=== PATIENT | female | born 1950 | race Caucasian/White ===

== ENCOUNTER 2023-08-25 08:43 | Observation (INO) ==
[2023-08-25] MEDS ORDERED: SODIUM CHLORIDE 0.9% 1,000 ML IV STA (09:03)
--- NOTE | 2023-08-25 09:08 | Emergency Department Note ---
Impression & Plan Elevated troponin ADMIT ED Provider Note HPI: History obtained from patient and at the bedside. The patient is a 72-year-old female with history of breast cancer, currently on chemotherapy, presents emergency department with a chief complaint of an episode of vomiting and amnesia since last night. Patient's states that the patient felt nauseous last night at around 8:30 PM and had an episode of vomiting. Patient was not having any abdominal pain. Shortly after this episode the patient seemed to have some confusion mostly related to amnesia, patient was asking the frequently the same questions that he had already answered. This morning the patient did not remember the events of last night including her episode of vomiting. Therefore they came to the emergency department for the patient to be assessed. On arrival here to the ED the patient states that her symptoms are completely resolved, patient is alert and oriented x 3 on arrival, denies any abdominal pain, denies any nausea or vomiting. Patient does not have any focal deficits on arrival. ROS: - Per HPI Differential Diagnosis: Acute ischemic stroke, intracranial hemorrhage, viral infection, meningitis, COVID-19 infection, influenza A infection, urinary tract infection, pneumonia, small bowel obstruction, viral gastroenteritis, amongst other potential pathologies. *Outpatient medications and allergy history reviewed. PE: General: Alert HEENT: Normocephalic, trachea midline Eyes: Extraocular eye movement is intact, no scleral erythema Pulmonary: Clear to auscultation bilaterally, no wheezing Cardio: Regular rate and rhythm GI: Abdomen is soft to palpation : No suprapubic tenderness MSK: No evidence of trauma or malformation of the extremities, no edema Skin: No evidence of rash Neuro: Alert, no focal deficits, symmetrical facial movements are appreciated, equal bilateral drill doctor strength, patient ambulates all extremities spontaneously without issue Psychiatric: Cooperative INDEPENDENT INTERPRETATIONS: monitoring analyst: (As interpreted by myself): - An order was placed for continuous cardiac monitoring - Patient was noted to be in sinus rhythm with a rate of 90 EKG: (As interpreted by myself): Rate: 115 Rhythm: Sinus tachycardia Intervals: Within normal limits ST changes: No ST elevation Time: 0911 Chest x-ray: (As interpreted by myself): No acute disease Interventions provided in ED: -IV fluid bolus Medical Decision Making: Shortly after the patient arrived IV was established and lab work obtained, patient was placed on teletypesetter monitor. Lab work shows no leukocytosis, hemoglobin is normal, platelet count is normal, CMP shows a mild hypokalemia at 3.3, no evidence of acute kidney injury, high-sensitivity troponin is noted to be elevated at 45.4. EKG per my interpretation does not show any evidence of any acute ischemic changes, does reveal sinus tachycardia with a rate of 115. Urinalysis does not show any evidence of infection, there are trace ketones and trace blood. Viral panel testing was obtained and is completely negative. CT imaging of the head without contrast was obtained and there is no evidence of any acute intracranial process. Patient's abdomen is soft and nontender on my exam, I do not feel that CT imaging of the abdomen pelvis is indicated at this time. On my reassessment the patient continues to appear well, troponin on repeat is increasing to 62.4. Patient continues to deny any chest pain. Unclear source for the patient's troponin elevation and transient episode of amnesia, given the finding of troponin that is continuing to uptrend she will be admitted to the hospitalist service following my discussion with the on-call hospitalist, Dr. Mccoy. Patient and her at the bedside are in agreement to the above plan and the patient was placed for admission in stable condition. Consultants/Discussions held with other healthcare providers: -Hospitalist, Dr. Mccoy Disposition discussion held by myself with: -Patient and at bedside Diagnosis: 1. Elevated troponin, acute 2. Transient episode of amnesia 3. Transient episode of vomiting Disposition: Admission Advised outpatient follow up that was discussed with the patient: -Return to the ED immediately with any new or worsening symptoms -Follow up with a PCP in 2-3 Days Juve Titus DO Emergency Medicine Past Med/Surg History Medical History TGA (transient global amnesia) Hypertension Eczema Anxiety Breast cancer, right Biopsy on 05/11/22 Surgical History History of partial mastectomy of right breast with axillary SLN biopsy on 05/28/[address] Saldana Family History Mother , 47yo Leukemia Father , 73yo Stroke Hypertension Brother Atrial fibrillation Myocardial infarction Hypertension Daughter No problems noted. 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 How many Children do You have: 1 Feels Safe at Home: Yes Diet: regular caffeine: No during the past year weight has: remained stable Allergies Allergies Allergy/AdvReac Type Severity Reaction Status Date / Time telmisartan [From Micardis] Allergy Unknown Verified 03/22/23 14:42 Home Meds Home Medications Medication Instructions Recorded Confirmed fluoxetine 10 mg capsule (Prozac) 10 mg PO DAILY 06/23/22 08/25/23 losartan 50 mg tablet 50 mg PO DAILY 06/23/22 08/25/23 hydrochlorothiazide 12.5 mg tablet 12.5 mg PO DAILY 10/19/22 08/25/23 calcium carbonate 600 mg-vitamin 0 cap PO DAILY 03/22/23 08/25/23 D3 5 mcg (200 unit) capsule letrozole 2.5 mg tablet 2.5 mg PO DAILY 03/22/23 08/25/23 Results & Data (ED) Vital Signs Vital Signs - 24 hr 08/25/23 08:43 08/25/23 09:21 08/25/23 09:23 Temperature 36.6 C Temperature Source Temporal Artery Scan Pulse Rate 124 H 106 H 105 H Pulse Rate from SpO2 Sensor 106 H Respiratory Rate 18 13 Blood Pressure 206/99 H 154/115 H Blood Pressure Mean 134 128 Pulse Oximetry 96 96 Oxygen Delivery Method Room Air Sepsis Recent Fever Within 48 Hours No Sepsis New/Unexplained Change in Mental Status N/A Sepsis Action Taken by Nursing No Action Required 08/25/23 09:33 08/25/23 10:00 08/25/23 10:30 Temperature Temperature Source Pulse Rate 99 H 98 H Pulse Rate from SpO2 Sensor 98 H 99 H Respiratory Rate 23 15 Blood Pressure 149/98 H 172/99 H Blood Pressure Mean 115 123 Pulse Oximetry 97 97 98 Oxygen Delivery Method Room Air Room Air Room Air Sepsis Recent Fever Within 48 Hours Sepsis New/Unexplained Change in Mental Status Sepsis Action Taken by Nursing 08/25/23 11:00 08/25/23 11:00 08/25/23 11:10 Temperature Temperature Source Pulse Rate 103 H 92 H Pulse Rate from SpO2 Sensor 103 H 92 H Respiratory Rate 16 15 Blood Pressure 177/105 H Blood Pressure Mean 140 Pulse Oximetry 97 97 Oxygen Delivery Method Sepsis Recent Fever Within 48 Hours Sepsis New/Unexplained Change in Mental Status Sepsis Action Taken by Nursing 08/25/23 11:20 08/25/23 11:32 08/25/23 11:33 Temperature Temperature Source Pulse Rate 87 97 H 94 H Pulse Rate from SpO2 Sensor 89 Respiratory Rate 18 14 22 Blood Pressure Blood Pressure Mean Pulse Oximetry 99 Oxygen Delivery Method Sepsis Recent Fever Within 48 Hours Sepsis New/Unexplained Change in Mental Status Sepsis Action Taken by Nursing 08/25/23 11:40 08/25/23 11:50 08/25/23 12:00 Temperature Temperature Source Pulse Rate 90 88 Pulse Rate from SpO2 Sensor 89 90 Respiratory Rate 17 17 Blood Pressure 202/126 H Blood Pressure Mean 140 Pulse Oximetry 99 99 Oxygen Delivery Method Sepsis Recent Fever Within 48 Hours Sepsis New/Unexplained Change in Mental Status Sepsis Action Taken by Nursing 08/25/23 12:00 08/25/23 12:10 08/25/23 12:20 Temperature Temperature Source Pulse Rate 97 H 91 H 98 H Pulse Rate from SpO2 Sensor 97 H 92 H 97 H Respiratory Rate 22 13 19 Blood Pressure Blood Pressure Mean Pulse Oximetry 98 98 96 Oxygen Delivery Method Sepsis Recent Fever Within 48 Hours Sepsis New/Unexplained Change in Mental Status Sepsis Action Taken by Nursing 08/25/23 13:24 Temperature Temperature Source Pulse Rate 91 H Pulse Rate from SpO2 Sensor Respiratory Rate Blood Pressure Blood Pressure Mean Pulse Oximetry Oxygen Delivery Method Sepsis Recent Fever Within 48 Hours Sepsis New/Unexplained Change in Mental Status Sepsis Action Taken by Nursing Laboratory Data 08/25/23 09:22 08/25/23 09:22 Lab Results 08/25/23 08/25/23 08/25/23 Range/Units 09:22 09:46 11:10 WBC 6.80 (4.8-10.8) K/ul RBC 5.17 (4.20-5.40) M/uL Hgb 15.1 (12.0-16.0) g/dl Hct 44.5 (37.0-47.0) % MCV 86.1 (80.0-100.0) fL MCH 29.2 (25.0-34.0) pg MCHC 33.9 (32.0-36.0) g/dL RDW Std Deviation 40.9 (36.4-46.3) fL RDW Coeff of [place] 13.1 (11.5-14.5) % Plt Count 284 (130-400) K/uL MPV 9.4 (9.4-12.4) fL Immature Gran % (Auto) 0.1 % Neut % (Auto) 82.5 % Lymph % (Auto) 10.7 % [place] % (Auto) 6.6 % Eos % (Auto) 0.0 % Baso % (Auto) 0.1 % Neut # (Auto) 5.60 (1.40-6.50) K/uL Lymph # (Auto) 0.73 L (1.20-3.40) K/uL [place] # (Auto) 0.45 (0.11-0.59) K/uL Eos # (Auto) 0.00 (0.00-0.50) K/uL Baso # (Auto) 0.01 (0.00-0.20) K/uL Immature Gran # (Auto) 0.01 (0.01-0.20) K/uL PT 10.9 (9.0-12.0) Seconds INR 1.0 (0.9-1.1) Sodium 140 (136-145) mmol/L Potassium 3.3 L (3.5-5.1) mmol/L Chloride 105 (98-107) mmol/L Carbon Dioxide 25 (21-32) mmol/L Anion Gap 10 (3-11) BUN 23 (6-23) mg/dl Creatinine 0.88 (0.6-1.2) mg/dl Est Cr Clr Drug Dosing 56.4 ml/min Est GFR ( Amer) 76.1 ml/min Est GFR (Non-Af Amer) 65.6 ml/min BUN/Creatinine Ratio 26.1 H (10-20) Glucose 148 H (70-99(Fasting)) mg/dl Calcium 9.4 (8.6-10.3) mg/dl Total Bilirubin 0.7 (0.2-1.0) mg/dl AST 18 (13-39) U/L ALT 19 (7-52) U/L Alkaline Phosphatase 93 (34-104) U/L Troponin I High Sens 45.4 H 62.4 H* D (0-14) pg/ml Total Protein 7.7 (6.0-8.3) gm/dl Albumin 4.3 (3.4-5.0) gm/dl Globulin 3.4 (2.5-4.0) gm/dl Albumin/Globulin Ratio 1.3 (0.9-2) Lipase 13 (11-82) U/L Urine Color Urine Appearance (Clear) Urine pH (4.5-7.5) Ur Specific [place] (1.000-1.030) Urine Protein (Negative) Urine Glucose (UA) (Negative) Urine Ketones (Negative) Urine Blood (Negative) Urine Nitrite (Negative) Urine Bilirubin (Negative) Urine Urobilinogen (Negative) Ur Leukocyte Esterase (Negative) Urine WBC (Auto) (0-5) /hpf Urine RBC (Auto) (0-4) /hpf U Hyaline Cast (Auto) (0-5) /lpf U Epithel Cells (Auto) (0-5) /lpf Urine Bacteria (Auto) (Negative) Adenovirus (PCR) Not Detected (NotDetected) B. pertussis DNA (PCR) Not Detected (NotDetected) B.parapertussis DNA PCR Not Detected (NotDetected) C. pneumoniae DNA (PCR) Not Detected (NotDetected) Coronavirus OC43 (PCR) Not Detected (NotDetected) Coronavirus HKU1 (PCR) Not Detected (NotDetected) Coronavirus 229E (PCR) Not Detected (NotDetected) SARS-CoV-2 (PCR) Not Detected (NotDetected) Coronavirus NL63 (PCR) Not Detected (NotDetected) Human Metapneumovir PCR Not Detected (NotDetected) Influenza Type A (PCR) Not Detected (NotDetected) Influenza Type B (PCR) Not Detected (NotDetected) M. pneumoniae (PCR) Not Detected (NotDetected) Parainfluenza 1 (PCR) Not Detected (NotDetected) Parainfluenza 2 (PCR) Not Detected (NotDetected) Parainfluenza 3 (PCR) Not Detected (NotDetected) Parainfluenza 4 (PCR) Not Detected (NotDetected) RSV (PCR) Not Detected (NotDetected) Entero/Rhino (PCR) Not Detected (NotDetected) 08/25/23 Range/Units 11:30 WBC (4.8-10.8) K/ul RBC (4.20-5.40) M/uL Hgb (12.0-16.0) g/dl Hct (37.0-47.0) % MCV (80.0-100.0) fL MCH (25.0-34.0) pg MCHC (32.0-36.0) g/dL RDW Std Deviation (36.4-46.3) fL RDW Coeff of [place] (11.5-14.5) % Plt Count (130-400) K/uL MPV (9.4-12.4) fL Immature Gran % (Auto) % Neut % (Auto) % Lymph % (Auto) % [place] % (Auto) % Eos % (Auto) % Baso % (Auto) % Neut # (Auto) (1.40-6.50) K/uL Lymph # (Auto) (1.20-3.40) K/uL [place] # (Auto) (0.11-0.59) K/uL Eos # (Auto) (0.00-0.50) K/uL Baso # (Auto) (0.00-0.20) K/uL Immature Gran # (Auto) (0.01-0.20) K/uL PT (9.0-12.0) Seconds INR (0.9-1.1) Sodium (136-145) mmol/L Potassium (3.5-5.1) mmol/L Chloride (98-107) mmol/L Carbon Dioxide (21-32) mmol/L Anion Gap (3-11) BUN (6-23) mg/dl Creatinine (0.6-1.2) mg/dl Est Cr Clr Drug Dosing ml/min Est GFR ( Amer) ml/min Est GFR (Non-Af Amer) ml/min BUN/Creatinine Ratio (10-20) Glucose (70-99(Fasting)) mg/dl Calcium (8.6-10.3) mg/dl Total Bilirubin (0.2-1.0) mg/dl AST (13-39) U/L ALT (7-52) U/L Alkaline Phosphatase (34-104) U/L Troponin I High Sens (0-14) pg/ml Total Protein (6.0-8.3) gm/dl Albumin (3.4-5.0) gm/dl Globulin (2.5-4.0) gm/dl Albumin/Globulin Ratio (0.9-2) Lipase (11-82) U/L Urine Color Yellow Urine Appearance Clear (Clear) Urine pH 5.0 (4.5-7.5) Ur Specific [place] 1.030 (1.000-1.030) Urine Protein Trace H (Negative) Urine Glucose (UA) Negative (Negative) Urine Ketones Trace H (Negative) Urine Blood Trace H (Negative) Urine Nitrite Negative (Negative) Urine Bilirubin Negative (Negative) Urine Urobilinogen Negative (Negative) Ur Leukocyte Esterase Negative (Negative) Urine WBC (Auto) 1-5 (0-5) /hpf Urine RBC (Auto) 0-4 (0-4) /hpf U Hyaline Cast (Auto) 1-5 (0-5) /lpf U Epithel Cells (Auto) 20-30 H (0-5) /lpf Urine Bacteria (Auto) Negative (Negative) Adenovirus (PCR) (NotDetected) B. pertussis DNA (PCR) (NotDetected) B.parapertussis DNA PCR (NotDetected) C. pneumoniae DNA (PCR) (NotDetected) Coronavirus OC43 (PCR) (NotDetected) Coronavirus HKU1 (PCR) (NotDetected) Coronavirus 229E (PCR) (NotDetected) SARS-CoV-2 (PCR) (NotDetected) Coronavirus NL63 (PCR) (NotDetected) Human Metapneumovir PCR (NotDetected) Influenza Type A (PCR) (NotDetected) Influenza Type B (PCR) (NotDetected) M. pneumoniae (PCR) (NotDetected) Parainfluenza 1 (PCR) (NotDetected) Parainfluenza 2 (PCR) (NotDetected) Parainfluenza 3 (PCR) (NotDetected) Parainfluenza 4 (PCR) (NotDetected) RSV (PCR) (NotDetected) Entero/Rhino (PCR) (NotDetected) Administered Medications Discontinued Medications Sodium Chloride (Nss) 1,000 mls @ 999 mls/hr IV .Q1H1M STA Stop: 08/25/23 10:03 Last Infusion: 08/25/23 11:31 Dose: Infused Documented By: Admin: 08/25/23 09:18 Dose: 999 mls/hr Documented By: KINJAL Imaging Data Radiologist's Impression: Head CT 08/25/23 09:05 CT SCAN OF THE BRAIN WITHOUT IV CONTRAST CLINICAL HISTORY: Change in mental status. COMPARISON STUDY: No priors. TECHNIQUE: Unenhanced axial CT scan of the brain is performed from the vertex to the skull base. A dose lowering technique was utilized adhering to the principles of ALARA. CT DOSE: 547.75 mGy.cm FINDINGS: Brain parenchyma: There is age-related involutional change noting minimal microangiopathic disease. There is no hemorrhage, mass effect, or evidence of acute territorial ischemia by CT criteria. [place]-white matter differentiation is preserved. No extra-axial fluid collection is seen. Ventricles, sulci, cisterns: Prominent secondary to involutional change. Intracranial vasculature: There is mild atherosclerotic calcification of the cavernous carotid arteries. Calvarium: Unremarkable. Sinuses and mastoids: The visualized paranasal sinuses are clear. The mastoid air cells are well pneumatized. Orbits: The bony orbits are grossly intact. IMPRESSION: There is no hemorrhage, mass effect, or evidence of acute territorial ischemia by CT criteria. ACT 112: Negative or not required by law. Electronically signed by: Hussein Ortiz M.D. 08/25/2023 9:48 AM Chest X-Ray 08/25/23 12:20 XR chest 1V portable HISTORY: 72 years-old Female N/V acute chest pain with nausea and vomiting COMPARISON: 06/25/2022 TECHNIQUE: AP view of the chest FINDINGS: Cardiomediastinal and hilar silhouettes are within normal limits. No pneumothorax, pleural effusion or airspace consolidation. Bones of the chest appear grossly intact. IMPRESSION: No acute process. ACT 112: Negative or not required by law. The above report was generated using voice recognition software. It may contain grammatical, syntax or spelling errors. Electronically signed by: Tonio Mendez M.D. 08/25/2023 1:22 PM Discharge Plan Visit Data Chief Complaint: Altered Mental Status Stated Complaint: MEMORY LOSS/THROWING UP ED Provider: Juve Titus Discharge Problem: Elevated troponin Forms Stand Alone Forms: [facility] Prescriptions Prescriptions: No Action losartan 50 mg tablet 50 mg PO DAILY fluoxetine [Prozac] 10 mg capsule 10 mg PO DAILY hydrochlorothiazide 12.5 mg tablet 12.5 mg PO DAILY calcium carbonate-vitamin D3 600 mg-5 mcg (200 unit) capsule 0 cap PO DAILY Rx Instructions: unable to verify with [facility] 08/25/23 letrozole 2.5 mg tablet 2.5 mg PO DAILY Referrals Referrals: PCP,NO [Physician] -
--- OUTSIDE RECORDS SUMMARY | 2023-08-25 09:36 | External Medical Summary | Continuity of Care Document ---
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 [address], [address] [place] [address] [phone] Encounter Diagnosis Invasive ductal carcinoma of right breast(Discharge Diagnosis) - 07/07/23 Anxiety(Discharge Diagnosis) - 07/07/23 Hypertension(Discharge Diagnosis) - 07/07/23 Body mass index [BMI] 37.0-37.9, adult(Discharge Diagnosis) - 07/07/23 Discharge Disposition: Home or Self Care Attending Physician: MD Morrow Michael P Referring Physician: MD Morrow Michael P Allergies, Adverse Reactions, Alerts Substance Reaction Severity Status Micardis Active Assessment and Plan Extracted from: Title:Office Visit Note Author:MD Cristhian, Carson aelolita P Date:07/07/23 1.Invasive ductal carcinom a of right breast Ongoing treatment with hematology/oncology. Continues with letrozole 2.5 mg daily. Will continue to follow along. 2.Anxiety Stable and well-controlled. Continue withfluoxetine 10 mg daily. 3.Hypertension Stable at this time. Element of whitecoat hypertension. Goal BP less than 130/80. Continue with hydrochlorothiazide 12.5 mg daily + losartan 50 mg daily. I have spent35 minutes in face to face interaction regarding review of ongoing medical conditions, discussion and counseling regarding diagnostic testing, discussion and counseling regarding treatment recommendations, discussion and counseling regarding management recommendations and non face to face time for chart review and documentation. Immunizations Given and Recorded Vaccine Date Status Refusal Reason SARS COVID Vaccine Unspecified 06/15/23 Recorded influenza virus vaccine, inactivated 06/08/23 Ezequiel rded influenza virus vaccine, inactivated 06/01/23 Ezequiel rded influenza virus vaccine, inactivated 06/03/21 Ezequiel rded influenza virus vaccine, inactivated 04/29/20 Ezequiel rded influenza virus vaccine, inactivated 05/10/19 Ezequiel rded influenza virus vaccine, inactivated 04/28/18 Ezequiel rded influenza virus vaccine, inactivated 05/13/16 Ezequiel rded influenza virus vaccine, inactivated 06/09/15 Give n SARS-CoV-2 (COVID-19) mRNA-1273 vaccine 1 12/01/21 Recorded SARS-CoV-2 (COVID-19) mRNA-1273 vaccine 2 06/12/21 Recorded SARS-CoV-2 (COVID-19) mRNA-1273 vaccine 3 11/10/20 Recorded SARS-CoV-2 (COVID-19) mRNA-1273 vaccine 4 10/13/20 Recorded pneumococcal 23-valent vaccine 02/20/20 Given pneumococcal 13-valent vaccine 01/29/19 Given 1Result Comment: 2022-04-23: Historical information-source unspecified 2Result Comment: 2022-04-23: Historical information-source unspecified 3Result Comment: 2022-04-23: Historical information-source unspecified 4Result Comment: 2022-04-23: Historical information-source unspecified Medications Calcium 600+D Start: 07/07/23 10:01:00 EST Start Date: 07/07/23 Status: Ordered hydroCHLOROthiazide 12.5 mg oral capsule Start: 05/13/23 6:31:00 EDT, 1 cap, PO, Daily, Disp# 90 cap, Refills: 3, Take with Losartan, Pharmacy: [facility] Start Date: 05/13/23 Status: Ordered letrozole 2.5 mg oral tablet Start: 07/07/23 10:00:00 EST, 1 tab, PO, Daily Start Date: 07/07/23 Status: Ordered losartan 50 mg oral tablet Start: 05/13/23 6:31:00 EDT, 1 tab, PO, Daily, Disp# 90 tab, Refills: 3, Take with HCTZ, Pharmacy: [facility] Start Date: 05/13/23 Status: Ordered PROzac 10 mg oral capsule Start: 05/13/23 6:31:00 EDT, 1 cap, PO, Daily, Disp# 90 cap, Refills: 3, Pharmacy: [facility] Start Date: 05/13/23 Stop Date: 05/07/24 Status: Ordered Mental Status 07/07/23 Barriers to Learning one year None evide nt Mandatory Health Literacy Documentation Yes Health Literacy Communication Barriers N ever Primary Language Singaporean Problem List Condition Confirmation Course Effective Dates Status Health St atus Informant Eczema Confirmed Active Anxiety Confirmed Active Hypertension Confirmed Active Impaired fasting glucose Confirmed Active Invasive ductal carcinoma of right breast Confirmed Active Mammogram declined Confirmed Active Weight disorder Confirmed Active White coat hypertension Confirmed Active Diagnosis Diagnosis Type Effective Dates Health Status Clinical Service Informant Body mass index [BMI] 37.0-37.9, adult Discharge Diagnosis 07/07/23 Non-Specified Invasive ductal carcinoma of right breast Discharge Diagnosis 07/07/23 Anxiety Discharge Diagnosis 07/07/23 Hypertension Discharge Diagnosis 07/07/23 Procedures Procedure Date Related Diagnosis Body Site Status Mammogram 1, 2, 3 05/03/22 Complet ed None Completed 110.5.22: invasive ductal carcinoma, grade 3, estrogen and progesterone receptor pos, HER2/jinny negative 2IMPRESSION: ACR BI-RADS CATEGORY 4: SUSPICIOUS, ULTRASOUND ACR BI-RADS CATEGORY 4: SUSPICIOUS 1. Right breast ultrasound-guided core needle biopsy is recommended for a suspicious irregular hypoechoic mass with associated calcification and architectural distortion in the area of palpable concern in the right 8:00 breast, measuring up to 3 cm mammographically. 2. No suspicious right axillary adenopathy seen mammographically or on targeted ultrasound. 3. No mammographic evidence of malignancy in the left breast. These results and recommendations were discussed with the patient at the time of the exam. She tentatively scheduled a follow-up appointment prior to leaving the department. Some breast cancers are not detected with mammography. A negative mammographic report should not delay biopsy if a clinically suggestive mass is present. Clotilde Al M.D. ay/:05/03/2022 14:34:56 310.4.22: s/p right breast US guided bx of a suspicious irregular hypoechoic mass in the area of palpable and visible concern in the right 0800 breast, with ribbon shaped bx marker placed at the site. Vital Signs Most recent to oldest [Reference Range]: 1 Height 152.2 cm (07/07/23 10:02 AM) Patient Weight 86.7 kg (07/07/23 10:02 AM) Body Mass Index 37.43 kg/m2 (07/07/23 10:02 AM) Temperature [36.5-37.9 DegC] 36.6 DegC (07/07/23 10:02 AM) Social History Social History Type Response Smoking Status Never smoked cigaret roxi Sex Female Medicine Outpt Note * MD Cristhian, Jared Paniagua: PERFORM Event Display: Medicine Outpt Note Authored Date: [id number] Chief Complaint F/U meds, former patient Dr Gamino. Had f/u/COVID vaccines in June. FYI had RT breast mass (malignant) removed May 2022, follows with Dr Bond @ [facility]. History of Present Illness Maribell Devine is a 72-year-old female who presents for follow-up of her chronic medical conditionsand to establish care with me. She is a former patient of Dr. Gamino. She was last seen by him on 04/23/2022. BP readings at home have been 118-148/73-87. She does have challenges with white coat HTN and declines BP readings in the office. No dizziness or lightheadedness. She overall is feeling well. It has been a challenging year with the breast cancer diagnosis. She was able to tolerate 2 cycles of chemotherapy but was unable to complete any further. She did recently have imaging which revealed no further evidence ofcancer. She follows upfrequently with hematology oncology through [facility] and her next appointment is in September 2023. She has also been treated for anxiety with fluoxetine 10 mg daily which has helped withoverall mood. She reports that this is a good dose for her. Past medical history: #Hypertension: Longstanding, currently managed with hydrochlorothiazide 12.5 mg+ losartan 50 mg daily #Anxiety disorder: Longstanding, currently managed with fluoxetine 10 mg daily Breast cancer: Found on breast cancer screening (04/29); biopsy (05/11/2022) invasive ductal carcinoma, grade 3, ER/ND positive, HER2/jinny negative; status post right breast lumpectomy and sentinel nodebiopsy (05/29); perineural + lymphovascular invasion identified +3 lymph nodes positive, stage Ib; underwent chemotherapy + radiation therapy + letrozole; she is followed by [facility] Review of Systems As per HPI Physical Exam Vitals & Measurements T:36.6C SpO2:99% HT:152.2cm WT:86.700kg(Dosing) WT:86.7kg BMI:37.43 PHQ2 Data(Data Documented on:07/07/2023 09:54) Emotional health assessment NEGATIVE GEN: Well developed, well nourished, no acute distress HEENT: NCAT, MMM, EOMI, PERRL CV: RRR, no murmurs, normal S1 and S2 LUNG: Clear to auscultation bilaterally ABD: Nondistended EXT: No c/c/e MSK: Strength in the upper and lower extremities is preserved NEURO: AxOx3, moving all extremities; no focal neurologic deficits; CN II-XII grossly intact Assessment/Plan 1.Invasive ductal carcinoma of right breast Ongoing treatment with hematology/oncology. Continues with letrozole 2.5 mg daily. Will continue to follow along. 2.Anxiety Stable and well-controlled. Continue withfluoxetine 10 mg daily. 3.Hypertension Stable at this time. Element of whitecoat hypertension. Goal BP less than 130/80. Continue with hydrochlorothiazide 12.5 mg daily + losartan 50 mg daily. I have spent35 minutes in face to face interaction regarding review of ongoing medical conditions, discussion and counseling regarding diagnostic testing, discussion and counseling regarding treatment recommendations, discussion and counseling regarding management recommendations and non face to face time for chart review and documentation. Problem List/Past Medical History Ongoing Anxiety Eczema Hypertension Impaired fasting glucose Invasive ductal carcinoma of right breast Mammogram declined Weight disorder White coat hypertension Procedure/Surgical History Mammogram (05/03/2022)None Medications calcium-vitamin D(Calcium 600+D) FLUoxetine(PROzac 10 mg oral capsule), 10 mg= 1 cap, PO, Daily, 3 refills hydroCHLOROthiazide(hydroCHLOROthiazide 12.5 mg oral capsule), 12.5 mg= 1 cap, PO, Daily, 3 refills letrozole(letrozole 2.5 mg oral tablet), 2.5 mg= 1 tab, PO, Daily losartan(losartan 50 mg oral tablet), 50 mg= 1 tab, PO, Daily, 3 refills Allergies Micardis Social History Smoking Status Never smoked cigarettes Alcohol Use:Current Type:Beer, Wine Frequency:3-5 times per week 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 Leukemia: Mother. Stroke: Father. Health Status Family Member(s) Immunizations Vaccine Date Status influenza virus vaccine, inactivated 06/01/2023 Recorded SARS-CoV-2 (COVID-19) mRNA-1273 vaccine 12/01/2021 Recorded Comments : 2022-04-23: Historical information-source unspecified SARS-CoV-2 (COVID-19) mRNA-1273 vaccine 06/12/2021 Recorded Comments : 2022-04-23: Historical information-source unspecified influenza virus vaccine, inactivated 06/03/2021 Recorded SARS-CoV-2 (COVID-19) mRNA-1273 vaccine 11/10/2020 Recorded Comments : 2022-04-23: Historical information-source unspecified SARS-CoV-2 (COVID-19) mRNA-1273 vaccine 10/13/2020 Recorded Comments : 2022-04-23: Historical information-source unspecified influenza virus vaccine, inactivated 04/29/2020 Recorded pneumococcal 23-valent vaccine 02/20/2020 Given influenza virus vaccine, inactivated 05/10/2019 Recorded pneumococcal 13-valent vaccine 01/29/2019 Given influenza virus vaccine, inactivated 04/28/2018 Recorded influenza virus vaccine, inactivated 05/13/2016 Recorded influenza virus vaccine, inactivated 06/09/2015 Given Recommendations Health Maintenance Pending(in the next year) OverDue Medicare Annual Wellness Visit due02/18/22and every 1year Due Adult COVID-19 Vaccination due07/07/23Unknown Frequency Adult Tdap/Td Vaccine due07/07/23Unknown Frequency Colorectal Cancer Screening due07/07/23Unknown Frequency Hepatitis C Screening due07/07/23One-time only Shingles Vaccine due07/07/23One-time only Due In Future Adult Influenza Vaccine not due until02/06/24and every 1year Breast Cancer Screening not due until05/03/24and every 731day Body Mass Index not due until07/06/24and every 1year Satisfied(in the past 1 year) Satisfied Adult Influenza Vaccine on06/01/23.Satisfied by NORMA Vegas, Monique Body Mass Index on07/07/23.Satisfied by ADELINE Jones Lori Electronic Signature on File Electronically Reviewed/Signed by: Jared Morrow MD Author Signature Dt/Tm:07/07/2023 10:31 AM Division of Internal Medicine MPM Patient Care team information Care Team Personnel Name: MD Cristhian, Jared Paniagua Position: Physician - Internal Med Member Role: Primary Care Provider Address: Address: [address] [place] [id number] Care Team Related Persons Name: KENDRICK DEVINE Address: home [address] [place] [address] [address] [place], [place] [phone] Name: YUNG ROSALES Name: YUNG ROSALES Address: home No Address Provided
--- NOTE | 2023-08-25 09:49 | CT Scan Report ---
CT SCAN OF THE BRAIN WITHOUT IV CONTRAST CLINICAL HISTORY: Change in mental status. COMPARISON STUDY: No priors. TECHNIQUE: Unenhanced axial CT scan of the brain is performed from the vertex to the skull base. A do se lowering technique was utilized adhering to the principles of ALARA. CT DOSE: 547.75 mGy.cm FINDINGS: Brain parenchyma: There is age-related involutional change noting minimal microangiopathic disease. T here is no hemorrhage, mass effect, or evidence of acute territorial ischemia by CT criteria. Del Real-wh ite matter differentiation is preserved. No extra-axial fluid collection is seen. Ventricles, sulci, cisterns: Prominent secondary to involutional change. Intracranial vasculature: There is mild atherosclerotic calcification of the cavernous carotid arteri es. Calvarium: Unremarkable. Sinuses and mastoids: The visualized paranasal sinuses are clear. The mastoid air cells are well pneu matized. Orbits: The bony orbits are grossly intact. IMPRESSION: There is no hemorrhage, mass effect, or evidence of acute territorial ischemia by CT brayan duran. ACT 112: Negative or not required by law. Electronically signed by: Hussein Ortiz M.D. 08/25/2023 9:48 AM
[2023-08-25 10:03] LABS: Albumin Globulin Ratio 1.3 (0.9-2); Albumin Level 4.3 gm/dl (3.4-5.0); BUN Creatinine Ratio 26.1 (10-20); Bilirubin,Total 0.7 mg/dl (0.2-1.0); Calcium 9.4 mg/dl (8.6-10.3); Creatinine Clr Calc Pharmacy 56.4 ml/min; Est GFR (African American) 76.1 ml/min; Est GFR (Non-African American) 65.6 ml/min; Globulin 3.4 gm/dl (2.5-4.0); Potassium 3.3 mmol/L (3.5-5.1); Total Protein 7.7 gm/dl (6.0-8.3)
[2023-08-25 10:06] LABS: Basophils # (auto) 0.01 K/uL (0.00-0.20); Basophils % (auto) 0.1 %; Hematocrit (blood only) 44.5 % (37.0-47.0); Hemoglobin 15.1 g/dl (12.0-16.0); Immature Granulocytes # (auto) 0.01 K/uL (0.01-0.20); Immature Granulocytes % (auto) 0.1 %; Lymphocytes # (auto) 0.73 K/uL (1.20-3.40); Lymphocytes % (auto) 10.7 %; Mean Corpuscular Hemoglobin 29.2 pg (25.0-34.0); Mean Corpuscular Hgb Conc 33.9 g/dL (32.0-36.0); Mean Corpuscular Volume 86.1 fL (80.0-100.0); Mean Platelet Volume 9.4 fL (9.4-12.4); Monocytes # (auto) 0.45 K/uL (0.11-0.59); Monocytes % (auto) 6.6 %; Neutrophils % (auto) 82.5 %; Platelet Count 284 K/uL (130-400); RDW Coefficient of Variation 13.1 % (11.5-14.5); RDW Standard Deviation 40.9 fL (36.4-46.3); Red Blood Count 5.17 M/uL (4.20-5.40)
[2023-08-25 10:09] LABS: Troponin I High Sensitivity 45.4 pg/ml (0-14)
[2023-08-25 10:11] LABS: Prothrombin Time 10.9 Seconds (9.0-12.0)
[2023-08-25 11:23] LABS: Adenovirus PCR Not Detected (NotDetected); Bordetella parapertussis PCR Not Detected (NotDetected); Bordetella pertussis PCR Not Detected (NotDetected); Chlamydia pneumoniae PCR Not Detected (NotDetected); Coronavirus 229E PCR Not Detected (NotDetected); Coronavirus CoV-2 (COVID19)PCR Not Detected (NotDetected); Coronavirus HKU1 PCR Not Detected (NotDetected); Coronavirus NL63 PCR Not Detected (NotDetected); Coronavirus OC43PCR Not Detected (NotDetected); Human Metapneumovirus PCR Not Detected (NotDetected); Influenza A PCR Not Detected (NotDetected); Influenza B PCR Not Detected (NotDetected); Mycoplasma pneumoniae PCR Not Detected (NotDetected); Parainfluenza Virus 1 PCR Not Detected (NotDetected); Parainfluenza Virus 2 PCR Not Detected (NotDetected); Parainfluenza Virus 3 PCR Not Detected (NotDetected); Parainfluenza Virus 4 PCR Not Detected (NotDetected); Respiratory Syncytial VirusPCR Not Detected (NotDetected); Rhinovirus/Enterovirus PCR Not Detected (NotDetected)
[2023-08-25 11:56] LABS: Appearance Urine Clear (Clear); Bacteria Urine Automated Negative (Negative); Bilirubin Urine Negative (Negative); Blood Urine Trace (Negative); Color Urine Yellow; Epithelial Cell Urine Auto 20-30 /lpf (0-5); Glucose Urine UA Negative (Negative); Ketones Urine Trace (Negative); Leukocyte Esterase Urine Negative (Negative); Nitrite Urine Negative (Negative); Protein Urine Trace (Negative); RBC Urine Automated 0-4 /hpf (0-4); Urobilinogen Urine Negative (Negative)
--- NOTE | 2023-08-25 12:30 | History & Physical Report ---
Date of Service August 25, 2023 Assessment & Plan (1) TGA (transient global amnesia): Plan: TGA with associated nausea Suspect TGA due to acute onset of transient anterograde amnesia now resolved. Presented as sudden onset, forgetfulness and anterograde amnesia with about 5- minute retention. Now completely resolved morning following episode. No other deficits including No weakness/sensory change/dysarthria/aphasia during event or on admission. This is confirmed by patient's who was present at bedside and who was with her during the Patient reports she cannot tolerate MRIs, this causes her extreme anxiety claustrophobia and she is unable to tolerate even with pretreatment. Discussed risks/benefits and that while presentation is probably consistent with TGA CVA cannot be definitively ruled out MRI is preferred stroke r/o and can also show some changes in TGA. Patient expresses an understanding of risk/benefits, however is adamant that she cannot tolerate and does not wish to have an MRI under any circumstances - [facility]. highly consistent with TGA and while CVA cannot be definitively ruled out, additional imaging unlikely to be helpful at this time especially as patient is at her normal neurologic baseline and strong clinical presentation with TGA. Should she have any recurrent symptoms or development of strokelike symptoms should have repeat imaging and include angiography at that time. Antiplatelet not recommended at this time. Interval CT not recommended. Supportive care, patient counseled that it is typically transient and does not recur for most patients - Thiamine x1 given, daily supplement added. Level pending (2) Troponin level elevated: Plan: Mild trop elevation - 45 --> 64 No ischemic changes on EKG, this is pending downloaded into Webroot Patient denies chest pain, chest pressure, shortness of breath during her episode, at bedside, and in the preceding few weeks. She is able to perform her daily activities, walk, go up stairs without any limiting chest pain or dyspnea. No history of MO, DM 2 Low suspicion for ACS, troponin trended, echo pending. DDx includes demand & hypertensive. (3) Hypertension: Plan: Hypertension Patient reports history of hypertension and severe whitecoat hypertension with anxiety. She did not take her blood pressure medications yesterday evening as well Asymptomatic at bedside with SBP around 200s. Home antihypertensives ordered. - labetelol neonatal nurse for SBP >220 + symptoms (4) Breast cancer, right: Plan: History of breast cancer Status post lumpectomy of the left breast. No known recurrence or metastasis. Letrozole continued Plan DVT prophylaxis: Lovenox Disposition: PCU for trop trend and HTN with IV BB availibility CODE STATUS: Full Diet: Heart healthy History of Present Illness Primary Care Provider: Jared Morrow MD Maribell is a 72-year-old female with a past medical history of partial right breast mastectomy 2/2 ER positive breast cancer continued on letrozole who presents with nausea/vomiting at 8:30 PM and an episode of confusion with retrograde amnesia. Per patient's she was frequently asking the same questions that he already answered and this morning had no memory of that prior night's events. On ER evaluation she is at her neurologic baseline and CT shows no acute findings. High-sensitivity troponin is elevated at 45 with a slight trend to 62.4 while in the ER. Yesterday evening had a sudden onset of nausea. Went to go to the bathroom, but suddenly threw up. No blood or bile. Then had confusion with no memory of preceding events. Asked every few minutes 'did I throw up?' and seemed to only retain memory for ~5 minutes. Did not remember events earlier in the day, and memory of the prior few hours was fuzzy and then no retention of events that evening. Today seemed to be back to normal. Remembers more of the events prior, but very little between vomiting and then this morning. No focual neurologic deficits. No leg or arm weakness that her noticed. NO arm or leg weakness No dysarthria. No aphasia, just memory No history of chest pain or chest pressure. No history of MO or CHF Mild nausea problems intermittently, nothing frequent. No nausea currently. No diarrhea, no constipation. No bloody or black BMs. No T2DM Hx of white coat hypertension. Taks hctz and losartan. Did not take this this AM. She takes in the evening and missed these last night. No headache. Takes letrozole 2.5mg daily. Hx of lumpectomy. No known residual cancer or metastasis. Father had a stroke + afib. Pt with no history of strokes or afib. Pt with no hx of cardiac disease Medical History: Reviewed Medications: Reviewed Surgical History: Reviewed Family history: Reviewed Allergies: Reviewed Social History: No tobacco use. Rare social etoh use Code Status: FUll Allergies Allergy/AdvReac Type Severity Reaction Status Date / Time telmisartan [From Micardis] Allergy Unknown Verified 03/22/23 14:42 Home Medications Medication Instructions Recorded Confirmed Type fluoxetine 10 mg capsule (Prozac) 10 mg PO DAILY 06/23/22 08/25/23 History losartan 50 mg tablet 50 mg PO DAILY 06/23/22 08/25/23 History hydrochlorothiazide 12.5 mg tablet 12.5 mg PO DAILY 10/19/22 08/25/23 History calcium carbonate 600 mg-vitamin 0 cap PO DAILY 03/22/23 08/25/23 History D3 5 mcg (200 unit) capsule letrozole 2.5 mg tablet 2.5 mg PO DAILY 03/22/23 08/25/23 History Past Med/Surg History Medical History TGA (transient global amnesia) Hypertension Eczema Anxiety Breast cancer, right Biopsy on 05/11/22 Surgical History History of partial mastectomy of right breast with axillary SLN biopsy on 05/28/[address] Saldana Family History Mother , 47yo Leukemia Father , 73yo Stroke Hypertension Brother Atrial fibrillation Myocardial infarction Hypertension Daughter No problems noted. 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 NAD. Cooperative. HEENT: Atraumatic, normocephalic. Pulm: CTAB A&P. -wheezes, -rales, -rhonchi. Symmetrical chest rise. No increased work of breathing. No respiratory distress. Cardiac: RRR, -mrg. Radial pulses intact and symmetrical. Abdominal: Nontender, nondistended, soft. BS present. CRANIAL NERVES: II: Pupils equal and reactive, no relative afferent pupillary defect, no VF cuts III, IV, : EOM intact, no gaze preference or deviation, no nystagmus. V: normal sensation in V1, V2, and V3 segments bilaterally VII: no asymmetry, no nasolabial fold flattening VIII: normal hearing to speech IX, X: normal palatal elevation XI: 5/5 head turn XII: midline tongue protrusion MOTOR: RUE: 5/5 Shoulder internal rotation, external rotation, flexion, extension, abduction, adduction 5/5 Elbow flexion/extension, wrist flexi on/extension 5/5 cotton dispatcher strength, finger flexion/extens ion, interosseus LUE: 5/5 Shoulder internal rotation, external rotation, flexion, extension, abduction, adduction 5/5 Elbow flexion/extension, wrist flexi on/extension 5/5 cotton dispatcher strength, finger flexion/extens ion, interosseus RLE: 5/5 to hip flexion, knee extension, ankl e dorsiflexion/plantarflexion LLE: 5/5 to hip flexion, knee extension, ankl e dorsiflexion/plantarflexion SENSORY: Normal to touch in upper and lower extremities without deficit or asymmetry COORD: Normal finger to nose, no tremor, no dysmetria Results & Data Results & Data Vital Signs (Past 12 Hours) Vital Signs Temp Pulse Resp BP Pulse Ox O2 Del Method 08/25/23 12:20 98 H 19 96 08/25/23 12:10 91 H 13 98 08/25/23 12:00 97 H 22 98 08/25/23 12:00 202/126 H 08/25/23 11:50 88 17 99 08/25/23 11:40 90 17 99 08/25/23 11:33 94 H 22 08/25/23 11:32 97 H 14 08/25/23 11:20 87 18 99 08/25/23 11:10 92 H 15 97 08/25/23 11:00 103 H 16 97 08/25/23 11:00 177/105 H 08/25/23 10:30 98 H 15 172/99 H 98 Room Air 08/25/23 10:00 99 H 23 149/98 H 97 Room Air 08/25/23 09:33 97 Room Air 08/25/23 09:23 105 H 08/25/23 09:21 106 H 13 154/115 H 96 Room Air 08/25/23 08:43 36.6 C 124 H 18 206/99 H 96 PG Care Time/CCT Total # of Minutes Spent Total Time Spent with Patient: Total time spent is greater than 50% in coordination of care (as documented) at patient's floor/unit and/or counseling patient: Coding Level of Care Code 57198 INT INP/OBS CARE 3/75MIN Diagnoses TGA (transient global amnesia) G45.4 Troponin level elevated R79.89 Hypertension I10 Breast cancer, right C50.911
[2023-08-25] MEDS ORDERED: THIAMINE HCL 300 MG in SODIUM CHLORIDE 0.9% 50 ML IV STA (13:03)
--- NOTE | 2023-08-25 13:23 | XRay Report ---
XR chest 1V portable HISTORY: 72 years-old Female N/V acute chest pain with nausea and vomiting COMPARISON: 06/25/2022 TECHNIQUE: AP view of the chest FINDINGS: Cardiomediastinal and hilar silhouettes are within normal limits. No pneumothorax, pleural effusion o r airspace consolidation. Bones of the chest appear grossly intact. IMPRESSION: No acute process. ACT 112: Negative or not required by law. The above report was generated using voice recognition software. It may contain grammatical, syntax o r spelling errors. Electronically signed by: Tonio Mendez M.D. 08/25/2023 1:22 PM
[2023-08-25] MEDS: hydroCHLOROthiazide 25 MG TAB PO SCH (13:43)
[2023-08-25] MEDS: LOSARTAN POTASSIUM 50 MG TAB PO SCH (13:43)
[2023-08-25] MEDS ORDERED: ACETAMINOPHEN 500 MG TAB PO PRN (13:55)
[2023-08-25] MEDS ORDERED: ACETAMINOPHEN 500 MG TAB ONE (14:00)
[2023-08-25] MEDS ORDERED: LABETALOL HCL IV 5 MG/ML 20ML IV PRN (14:23)
[2023-08-25] MEDS ORDERED: ACETAMINOPHEN 325 MG TAB PO PRN (14:23)
[2023-08-25] MEDS ORDERED: ENOXAPARIN INJ 40 MG/0.4 ML SYR SQ SCH (14:30)
--- NOTE | 2023-08-25 18:38 | XCELERA ---
[id number] \\[id number]
[2023-08-26 03:40] LABS: Basophils # (auto) 0.01 K/uL (0.00-0.20); Basophils % (auto) 0.2 %; Eosinophils # (auto) 0.05 K/uL (0.00-0.50); Eosinophils % (auto) 1.1 %; Hematocrit (blood only) 39.4 % (37.0-47.0); Hemoglobin 12.8 g/dl (12.0-16.0); Immature Granulocytes # (auto) 0.01 K/uL (0.01-0.20); Immature Granulocytes % (auto) 0.2 %; Lymphocytes # (auto) 1.16 K/uL (1.20-3.40); Lymphocytes % (auto) 25.8 %; Mean Corpuscular Hgb Conc 32.5 g/dL (32.0-36.0); Mean Corpuscular Volume 89.3 fL (80.0-100.0); Mean Platelet Volume 9.2 fL (9.4-12.4); Monocytes # (auto) 0.49 K/uL (0.11-0.59); Monocytes % (auto) 10.9 %; Neutrophils # (auto) 2.77 K/uL (1.40-6.50); Neutrophils % (auto) 61.8 %; Platelet Count 207 K/uL (130-400); RDW Coefficient of Variation 13.3 % (11.5-14.5); Red Blood Count 4.41 M/uL (4.20-5.40); White Blood Count 4.49 K/ul (4.8-10.8)
[2023-08-26 03:48] LABS: BUN Creatinine Ratio 22.8 (10-20); Calcium 8.7 mg/dl (8.6-10.3); Creatinine Clr Calc Pharmacy 49.2 ml/min; Est GFR (African American) 64.4 ml/min; Est GFR (Non-African American) 55.6 ml/min; Potassium 3.5 mmol/L (3.5-5.1)
[2023-08-26] MEDS ORDERED: LETROZOLE 2.5 MG TAB PO SCH (09:00)
[2023-08-26] MEDS ORDERED: CALCIUM 600MG + VIT D 400 IU TAB PO SCH (09:00)
[2023-08-26] MEDS ORDERED: FLUoxetine HCL 10 MG CAP PO SCH (09:00)
[2023-08-26] MEDS: hydroCHLOROthiazide 25 MG TAB PO SCH (09:48)
[2023-08-26] MEDS: LOSARTAN POTASSIUM 50 MG TAB PO SCH (09:49)
--- NOTE | 2023-08-26 12:49 | Discharge Summary ---
Discharge Summary Date of Service August 26, 2023 Notes For Next Care Provider Medication Changes From Visit None Admission HPI Per Admitting Provider Maribell is a 72-year-old female with a past medical history of partial right breast mastectomy 2/2 ER positive breast cancer continued on letrozole who presents with nausea/vomiting at 8:30 PM and an episode of confusion with r etrograde amnesia. Per patient's she was frequently asking the same questions that he already answered and this morning had no memory of that prior night's events. On ER evaluation she is at her neurologic baseline and CT shows no acute findings. High-sensitivity troponin is elevated at 45 with a slight trend to 62.4 while in the ER. Yesterday evening had a sudden onset of nausea. Went to go to the bathroom, but suddenly threw up. No blood or bile. Then had confusion with no memory of preceding events. Asked every few minutes 'did I throw up?' and seemed to only retain memory for ~5 minutes. Did not remember events earlier in the day, and memory of the prior few hours was fuzzy and then no retention of events that evening. Today seemed to be back to normal. Remembers more of the events prior, but very little between vomiting and then this morning. No focual neurologic deficits. No leg or arm weakness that her noticed. NO arm or leg weakness No dysarthria. No aphasia, just memory No history of chest pain or chest pressure. No history of DE or CHF Mild nausea problems intermittently, nothing frequent. No nausea currently. No diarrhea, no constipation. No bloody or black BMs. No T2DM Hx of white coat hypertension. Taks hctz and losartan. Did not take this this AM. She takes in the evening and missed these last night. No headache. Takes letrozole 2.5mg daily. Hx of lumpectomy. No known residual cancer or metastasis. Father had a stroke + afib. Pt with no history of strokes or afib. Pt with no hx of cardiac disease Medical History: Reviewed Medications: Reviewed Surgical History: Reviewed Family history: Reviewed Allergies: Reviewed Social History: No tobacco use. Rare social etoh use Code Status: FUll Principal Dx & Hospital Course #1 = Principal Diagnosis (1) TGA (transient global amnesia): TGA preceded by N/V, likely viral gastroenteritis Presented as sudden onset, forgetfulness and anterograde amnesia lasting 5 hours. Continues to have retrograde amnesia about the event. Completely resolved morning following episode after sleeping for 5 hours. No other deficits including No weakness/sensory change/dysarthria/aphasia during event or on admission. This is confirmed by patient's who was present at bedside and who was with her during the event. Suspect cerebral vasospasm from her severely elevated BPs caused TGA or hypertensive encephalopathy. Pt did not unfortunately check her BP while the event was ongoing and typically blames her elevated BPs on white coat HTN. CT head negative, cannot tolerate brain MRI due to severe claustrophobia. Admitting hospitalist discussed w [facility]. Highly consistent with TGA and while CVA cannot be definitively ruled out, additional imaging unlikely to be helpful at this time especially as patient is at her normal neurologic baseline and strong clinical presentation with TGA. Should she have any recurrent symptoms or development of strokelike symptoms should have repeat imaging and include angiography at that time. Antiplatelet not recommended at this time. Interval CT not recommended. Otherwise, CBC, CMP, Viral respiratory Bio[employer] PCR, and UA all negative. No fevers and other than elevated BP and previous sinus tachycardia, all vitals normal. No further N/V and feeling very well Thiamine x1 given, thiamine level pending at time of discharge and can be followed up by PCP (2) Troponin level elevated: Mild trop elevation- 45/62/58/48/48, No ischemic changes on EKG Patient denies chest pain, chest pressure, shortness of breath during her episode, at bedside, and in the preceding few weeks. She is able to perform her daily activities, walk, go up stairs without any limiting chest pain or dyspnea. No history of DE, DM 2 ECHO with mild LVH, hyperdynamic LVEF 70%, no wall motion abnormalities This is not ACS. This is myocardial demand ischemia from hypertension and LVH NSR only on tele, no arrhythmias COntrol of BP is needed (3) Hypertension: Patient reports history of hypertension and severe white coat hypertension with anxiety. She did not take her blood pressure medications the night of the even due to N/V BPs on admission 200s/110 BPs now improved but remain high 2/2 white coat HTN continue home meds an home BP monitoring (4) Breast cancer, right: History of breast cancer, Status post lumpectomy of the left breast. No known recurrence or metastasis. Letrozole continued CT head here negative Plan DVT prophylaxis: Lovenox Disposition: stable for dc to home Discharge Exam Constitutional WD/WN, vitals as above Eyes PERRL, conjunctivae normal, anicteric sclerae ENMT external ear and nose normal, oropharynx normal Neck trachea midline, no thyromegaly Respiratory normal respiratory effort, lungs clear to auscultation Cardiovascular RRR, no murmur, no edema Chest (Breasts) Chest: normal inspection of chest Gastrointestinal (Abdomen) normal bowel sounds, soft, nontender, no hepatosplenomegaly Musculoskeletal Extremities: extremities normal to inspection; no cyanosis and no clubbing Skin no rashes, warm and dry Neurologic normal touch/pain/proprioception, CN's II-XI intact bilaterally, moves all extremities and awake; no focal motor deficits and not confused Psychiatric A+Ox3, euthymic affect Lymphatic no lymphedema Updated Medication List Medication Instructions Recorded Confirmed Type fluoxetine 10 mg capsule (Prozac) 10 mg PO DAILY 06/23/22 08/25/23 History losartan 50 mg tablet 50 mg PO DAILY 06/23/22 08/25/23 History hydrochlorothiazide 12.5 mg tablet 12.5 mg PO DAILY 10/19/22 08/25/23 History calcium carbonate 600 mg-vitamin 0 cap PO DAILY 03/22/23 08/25/23 History D3 5 mcg (200 unit) capsule letrozole 2.5 mg tablet 2.5 mg PO DAILY 03/22/23 08/25/23 History Hospital Stay Data Consultations 08/25/23 12:15 ED Decision to Admit Stat Diagnostic Imagining Performed 08/25/23 09:05 CT head/brain wo con Stat ECHO Pending Results Patient Have Any Pending Studies at Discharge: Yes (Vitamin B1 level) Discharge Instructions Given to Patient (Per Discharging Provider) You were admitted for testing due to an episode of amnesia for 4-5 hours. This could be transient global amnesia which will likely not happen again and we really have no idea why it occurs. On the other hand, you could have had some spasm of the blood vessels in the brain from elevated blood pressures after vomiting. Your blood pressures were quite elevated on arrival here and now are improved. Please monitor your blood pressures at home as you have been doing and review with your PCP. You had some mild elevation of your troponin blood test but did not have a heart attack. This is from strain on the heart from high blood pressures. Total Time Total Time Spent Total Time Spent (In Minutes): 35 min Coding Level of Care Code 90873 INP/OBS DISCH >30 MIN Diagnoses TGA (transient global amnesia) G45.4 Troponin level elevated R79.89 Hypertension I10 Breast cancer, right C50.911
--- NOTE | 2023-08-27 05:51 | Electrocardiogram Report ---
Test Reason : Blood Pressure : / mmHG Vent. Rate : 115 BPM Atrial Rate : 115 BPM P-R Int : 180 ms QRS Dur : 068 ms QT Int : 322 ms P-R-T Axes : 072 -19 040 degrees QTc Int : 445 ms Sinus tachycardia Inferior infarct , age undetermined Anterior infarct , age undetermined Abnormal ECG No previous ECGs available Confirmed by Chilango Moeller ([id number]) on 08/27/2023 5:51:04 AM Referred By: REFERRED SELF Confirmed By:Chilango Moeller
== END 2023-08-26 12:57 | disposition home or self-care (01) ==
LOC: ED 08:43 → EDINP 08:43 → SUATTDRO 13:06 → EDINP 14:20